=== PATIENT | female | born 2000 | race African-American/Black ===

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

== ENCOUNTER → 2020-07-22 | Outpatient (CLI) | payer SELFPAY ==
[~2020-07-22] MED LIST changes: +DIPH50CA PO; +MACR100C43 PO
== END ==
LOC: M LABSMTC 10:20
PROVIDERS: ATTEND Pediatrics
DX: Z20.828 Contact with and (suspected) exposure to other viral communicable diseases (principal)

== ENCOUNTER 2020-09-01 14:53 | Emergency (ER) | payer OTHER ==
[~2020-09-01] VITALS: Ht 162.6 cm; Wt 50.0 kg
[2020-09-01] MEDS ORDERED: NAPR-885 PO (15:02)
[2020-09-01] MEDS ORDERED: NS 1,000 ML IV ONE ×2 (16:20→18:55)
[2020-09-01] MEDS ORDERED: diphenhydrAMINE 50MG/ML VIAL (J1200) IV ONE (16:20)
[2020-09-01] MEDS ORDERED: ACETAMINOPHEN 500 MG TAB PO ONE (16:20)
[2020-09-01] MEDS ORDERED: METOCLOPRAMIDE INJ 10MG/2ML VIAL (J2765 PER 1) IV ONE (16:20)
[2020-09-01 17:01] LABS: BASO % 0.5 % (0.0-1.0); EOS # 0.1 10^3/uL (0.0-0.5); EOS % 0.8 % (0.0-3.0); HEMATOCRIT 42.1 % (36.0-47.0); HEMOGLOBIN 13.5 g/dl (12.0-15.5); LYMPH # 2.3 10^3/uL (1.5-5.0); LYMPH % 30.7 % (24.0-44.0); MEAN CORPUSCULAR HEMOGLOBIN 26.2 pg (27.0-33.0); MEAN CORPUSCULAR HGB CONC 32.1 g/dl (32.0-36.5); MEAN CORPUSCULAR VOLUME 81.7 fl (80.0-96.0); MONO # 0.3 10^3/uL (0.0-0.8); MONO % 3.8 % (2.0-8.0); NEUTROPHILS # 4.9 10^3/uL (1.5-8.5); NEUTROPHILS % 63.7 % (36.0-66.0); RED BLOOD COUNT 5.15 10^6/uL (4.00-5.40); WHITE BLOOD COUNT 7.6 10^3/uL (4.0-10.0)
[2020-09-01 17:13] LABS: PLATELET COUNT, AUTOMATED 197 10^3/uL (150-450)
[2020-09-01] MEDS ORDERED: ACETAMINOPHEN 325 MG TAB PO ONE (17:20)
[2020-09-01] MEDS ORDERED: METOCLOPRAMIDE 5 MG TAB PO ONE (17:20)
[2020-09-01] MEDS ORDERED: diphenhydrAMINE 25MG CAP PO ONE (17:20)
[2020-09-01 18:52] LABS: ALT/SGPT 19 U/L (12-78); BILIRUBIN,DIRECT 0.4 MG/DL (0.0-0.2); BILIRUBIN,TOTAL 1.9 MG/DL (0.2-1.0); BLOOD UREA NITROGEN 7 MG/DL (7-18); CALCIUM LEVEL 9.1 MG/DL (8.5-10.1); CARBON DIOXIDE LEVEL 28 MEQ/L (21-32); CHLORIDE LEVEL 107 MEQ/L (98-107); CK-MB VALUE MASS < 1.0 NG/ML (<3.6); CPK CREATINE PHOSPHOKINASE 79 U/L (26-192); GLUCOSE, FASTING 66 MG/DL (70-100); LIPASE 89 U/L (73-393); MB/CK RELATIVE INDEX 1.27 (< OR =4); POTASSIUM SERUM 3.9 MEQ/L (3.5-5.1); SODIUM LEVEL 139 MEQ/L (136-145); TOTAL PROTEIN 7.5 GM/DL (6.4-8.2); TROPONIN I < 0.02 NG/ML (< 0.10)
[2020-09-01 19:00] LABS: HCG, SERUM QUALITATIVE NEGATIVE (NEGATIVE)
[2020-09-01 19:15] LABS: ERYTHROCYTE SEDIMENTATION RATE 4 mm/hr (0-20)
--- NOTE | 2020-09-01 19:24 | REPVR ---
PROCEDURE INFORMATION: Exam: CT Head Without Contrast Exam date and time: 09/01/2020 7:06 PM Age: 20 years old Clinical indication: Pain; Headache; Additional info: Severe head pain x 14 days TECHNIQUE: Imaging protocol: Computed tomography of the head without contrast. Radiation optimization: All CT scans at this facility use at least one of these dose optimization techniques: automated exposure control; mA and/or kV adjustment per patient size (includes targeted exams where dose is matched to clinical indication); or iterative reconstruction. COMPARISON: No relevant prior studies available. FINDINGS: Brain: Normal. No hemorrhage. Unremarkable white matter. No mass effect. Cerebral ventricles: No ventriculomegaly. Bones/joints: Unremarkable. No acute fracture. Paranasal sinuses: Visualized sinuses are unremarkable. No fluid levels. Mastoid air cells: Visualized mastoid air cells are well aerated. Soft tissues: Unremarkable. IMPRESSION: No acute intracranial abnormality. Electronically signed by: Ace Hernandez On 09/01/2020 19:24:52 PM
--- NOTE | 2020-09-01 19:31 | REP ---
INDICATION: left sided chest pain COMPARISON: 06/13/2019 TECHNIQUE: PA and lateral. FINDINGS: The mediastinum and cardiac silhouette are normal. The lung carranza are clear and without acute consolidation, effusion, or pneumothorax. The skeletal structures are intact and normal. IMPRESSION: No acute cardiopulmonary process. <Electronically signed by Aakash Minor > 09/01/20 1921
[2020-09-01] MEDS ORDERED: KETOROLAC 30 MG/ML 1ML VIAL IV ONE (20:00)
[2020-09-01] MEDS ORDERED: dexameTHASONE 4 MG/ML 1ML VIAL (J1100 PER 1MG) IV ONE (20:00)
[2020-09-01 20:34] VITALS: BP 118/62
--- NOTE | 2020-09-02 14:21 | ECGEPIP ---
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
== END 2020-09-01 20:40 | disposition home or self-care (01) ==
LOC: M ED 14:53
DX: R07.89 Other chest pain (principal); G43.909 Migraine, unspecified, not intractable, without status migrainosus
CPT/HCPCS: 36415; 70450; 71046; 80048; 80076; 82550; 82553; 83690; 84484; 84703; 85025; 85652; 86140; 87798; 93005; 96361; 96374; 96375; 99284; J1100; J1885

== ENCOUNTER 2020-11-17 10:32 | Emergency (ER) | payer OTHER ==
[~2020-11-17] VITALS: Ht 162.6 cm; Wt 50.0 kg
[2020-11-17 10:32] VITALS: BP 108/64
[~2020-11-17 10:32] MED LIST changes: +NAPR-885 PO
[2020-11-17] MEDS ORDERED: IBUP-1114 PO (11:48)
[2020-11-17] MEDS ORDERED: GABA-282 PO (11:48)
[2020-11-17] MEDS ORDERED: IBUPROFEN 400MG TAB PO ONE (11:50)
== END 2020-11-17 12:01 | disposition home or self-care (01) ==
LOC: M ED 10:32
DX: M54.16 Radiculopathy, lumbar region (principal)

== ENCOUNTER → 2021-01-12 | Outpatient (REF) ==
[~2021-01-12] MED LIST changes: +BIOF4GEL4 TOP; +GABA-282 PO; +IBUP-1114 PO; +METH-1164 PO; +METH-1165 PO
== END ==
LOC: M PLAIMG 15:37
PROVIDERS: ATTEND Internal Medicine
DX: Z00.00 Encounter for general adult medical examination without abnormal findings (principal)

== ENCOUNTER 2021-02-11 15:37 | Emergency (ER) | payer OTHER ==
[~2021-02-11] VITALS: Ht 162.6 cm; Wt 99.5 kg
[~2021-02-11 15:37] MED LIST changes: -BIOF4GEL4 TOP; -METH-1164 PO; -METH-1165 PO
[2021-02-11] MEDS ORDERED: KETOROLAC TROMETHAMINE 10 MG TAB PO ONE (18:35)
[2021-02-11 18:46] VITALS: BP 107/70
== END 2021-02-11 18:49 | disposition home or self-care (01) ==
LOC: M ED 15:37
DX: R51.9 Headache, unspecified (principal); H01.113 Allergic dermatitis of right eye, unspecified eyelid

== ENCOUNTER 2021-03-13 17:56 | Emergency (ER) | payer OTHER ==
[~2021-03-13] VITALS: Ht 162.6 cm; Wt 54.5 kg
[2021-03-13] MEDS ORDERED: ISOVUE-370 76% 100ML VIAL As Ordered ONE (18:52)
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
[2021-03-13 19:31] LABS: HCG, SERUM QUALITATIVE NEGATIVE (NEGATIVE)
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
[2021-03-13] MEDS ORDERED: KETOROLAC 30 MG/ML 1ML VIAL IV ONE (19:50)
[2021-03-13] MEDS ORDERED: METH-1164 PO (20:12)
[2021-03-13] MEDS ORDERED: diazePAM 10MG/2ML SYRINGE (J3360 PER 5MG) IV ONE (20:15)
[2021-03-13 21:00] VITALS: BP 117/81
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
== END 2021-03-13 21:25 | disposition home or self-care (01) ==
LOC: M ED 17:56 → EDSEX 17:56 → EDBD 17:56 → M ED 21:25
DX: S06.0X0A Concussion without loss of consciousness, initial encounter (principal); S20.20XA Contusion of thorax, unspecified, initial encounter; V49.40XA Driver injured in collision with unspecified motor vehicles in traffic accident, initial encounter; M54.2 Cervicalgia; R91.8 Other nonspecific abnormal finding of lung field; Y92.9 Unspecified place or not applicable; Y93.9 Activity, unspecified; Y99.9 Unspecified external cause status
CPT/HCPCS: 70450; 71260; 72125; 72128; 72131; 74177; 80047; 84702; 84703; 96374; 96375; 99284; J1885; J3360; Q9967

== ENCOUNTER 2021-05-12 07:48 | Emergency (ER) | payer OTHER ==
[~2021-05-12] VITALS: Ht 162.6 cm; Wt 52.7 kg
[~2021-05-12 07:48] MED LIST changes: +METH-1164 PO
[2021-05-12] MEDS ORDERED: ACETAMINOPHEN 500 MG TAB PO ONE (08:00)
--- OUTSIDE RECORDS SUMMARY | 2021-05-12 09:01 | CCD ---
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 reliever [id number] [employer]. [address] [place] [address], [place] [address]. All rights reserved. This information is not intended as asubstitute for professional medical care. Always follow your healthcare professional's instructions. You have been given the following additional inf ormation: Anxiety Reaction Stay with responsible adult family member (or other responsible adult) today, for one days. No strenuous activity until better.(Electronically signed by UBNNY Tubbs 03/09/2021 22:10) Name Value Range Interpretation Code Description Data Abigail rce(s) Supporting Document(s) ID Date Data Source [id number] 03/09/2021 07:00:00 PM EDT [facility] 1 Clinical Report - Nurses [facility] Emergency Department [address] [place] [address] Phone #: ext- [phone] 03/09/2021 19:07 Patient: CRISTINO ALEXANDER Sex: F : 2000 Age: 20yTRIAGEArrived by private vehicle. Historian: patient. Unaccompanied.Acuity: LEVEL 4.Chief Complaint: (Anxiety).Alert. No acute distress.( Patient states for past "day or two" she has not eaten or drank anything due to "being too anxious". Statesthe anxiety is new. Denies nausea/vomiting or physical reasons for not eating, just states she hasn'twanted to.).Treatment [employer]:None.SEPSIS SCREEN: SIRS SCREEN NEGATIVE. SEPSIS SCREEN NEGATIVE. No suspected or confirmedsigns of infection present.SAHRA COMA SCORE: 15- eyes open- spontaneous (4); best verbal response- oriented (5); bestmotor response- obeys commands (6). --19:40 03/09/21 Rudy White9:34 0 03/09/21. BP: 101/66. HR: 74. RR: 14. O2 saturation: 100%. Temp: 98.9 F. Pain level now 6/10.--19:40 03/09/21 Beverly White.Weight: 54.4 kg. Height/Length: 64 inches. BMI: 20.6. --19:34 03/09/21 Beverly White.Medications"depression medication". --19:36 03/09/21 Beverly White "sleeping pill"-last night. --19:36 03/09/21 Beverly White.AllergiesNo Known Drug Allergy. --19:36 03/09/21 Beverly White.PROBLEMS:Migraine Headache.Depression.Chronic Back Pain.Head Injury. --19:37 03/09/21 Beverly White.HistoryPAST MEDICAL HX: Last normal menstrual period- February 23. Last oral intake by patient was 2 Clinical Report - Nurses [facility] Emergency Department [address] [place] [address] Phone #: ext- [phone] 03/09/2021 19:07 Patient: CRISTINO ALEXANDER Sex: F : 2000 Age: 20y (Yesterday morning). SOCIAL HX: Never smoker. No alcohol use or drug use. She was offered HIV testing but declined. Patient education was provided. She was offered hepatitis C testing but declined. Patient education was provided. She has not traveled outside the [place] Infectious disease exposure: No infectious disease exposure. The patient was not exposed to Coronavirus. Patient is not a known carrier of tuberculosis, hepatitis, HIV, MRSA or VRE. Patient is not a known carrier of CRE. SELF HARM ASSESSMENT: Self harm assessment was performed. The patient answered "no" to the question(s) "Have you recently felt down, depressed, or hopeless?", "Do you have thoughts of harming or killing yourself?", "Do you have a plan for harming or killing yourself?", "Have you recently had thoughts about harming or killing others?", "Do you have any dangerous items in your possession?", "Have you noticed less interest or pleasure in doing things?", "Are you here because you tried to hurt yourself?" and "Have you ever tried to hurt yourself before today?". ABUSE ASSESSMENT: Abuse assessment. The patient had positive responses to the question(s) "Do you feel safe in your home?" and "Are you afraid to go home?". Abuse denied. No suspicion of abuse. No report of abuse. NUTRITIONAL RISK ASSESSMENT: The nutritional risk assessment revealed no deficiencies. FUNCTIONAL ASSESSMENT: Functional assessment: no impairments noted. LEARNING NEEDS ASSESSMENT: The learning needs assessment revealed no barriers. FALL RISK ASSESSMENT: Fall risk assessment completed. No risk factors identified. SKIN INTEGRITY ASSESSMENT: Skin integrity risk assessment completed. No skin integrity risk identified. --19:40 03/09/21 Beverly White.PHYSICAL ASSESSMENTGENERAL / NEURO / PSYCH: Alert. Appears in no acute distress. Mood/affect abnormal (anxious andflat).HEENT: Pupils equal, round and reactive to light. No facial asymmetry noted. Mucous membranes arepink.RESPIRATORY: Respirations not labored. Chest nontender. Breath sounds within normal limits.CVS: Capillary refill less than 2 seconds. Pulses within normal limits.GI / : Abdomen soft and nontender and normal bowel sounds.SKIN: Skin intact. Skin is warm and dry. Normal skin turgor. --21:29 03/09/21 Di Emmanuel R.N.NURSING PROGRESS NOTESReassurance given. Two patient identifiers checked. Patient placed in chair. Patient ready forevaluation. --19:41 03/09/21 Beverly White 3 Clinical Report - Nurses [facility] Emergency Department [address] [place] [address] Phone #: ext- [phone] 03/09/2021 19:07 Patient: CRISTINO ALEXANDER [facility]#: [id number] Sex: F : 2000 Age: 20y 22:00 03/09/2021 Ativan (LORazepam) PO 0.5 mg given. Allergies verified and confirmed 5 rights. Information reviewed with patient including reason for taking this medication, signs of allergic reaction, precautions and sedative warning. Verbalizes understanding. (Take home med). --22:00 03/09/21 Beverly White.DISPOSITION / DISCHARGE Departure time: 22:09 03/09/2021. Condition at departure: stable. No learning barriers present. Discharge instructions provided and reviewed with the patient. Reviewed warnings. Reviewed medication(s). Reviewed referrals. Patient verbalized understanding. Written instructions provided in Ukrainian. The patient was discharged by the physician assistant business manager. She was discharged home and accompanied by coding manager. She left ambulatory and via private vehicle. Cellar [employer] driving. --22:09 03/09/21 Beverly White 22:08 03/09/21. BP: 101/67. HR: 65. RR: 15. O2 saturation: 97%. Temp: 97.8 F. Pain level now 0/10. --22:09 03/09/21 Beverly White.Locked/Released at 03/09/2021 22:09 by Beverly White Name Value Range Interpretation Code Description Data Abigail rce(s) Supporting Document(s) ID Date Data Source [id number] 03/09/2021 07:00:00 PM EDT [facility] 1 Clinical Report - Physicians/Mid Levels [facility] Emergency Department [address] [place] [address] Phone #: ext- [phone] 03/09/2021 19:07 Patient: CRISTINO ALEXANDER Sex: F : 2000 Age: 20y Time Seen: 21:31 03/09/2021. Arrived- By private vehicle. Not in custody. Historian- patient. Disposition decision: 21:59 03/09/2021.HISTORY OF PRESENT ILLNESS Chief Complaint: ANXIOUS. This started several days ago. 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 States emphatically and repeatedly that she has no suicidal thoughts/ideation and wants something for anxiety and sleep. No cough, fever, NVD, or other constitutional symptoms.). The patient has experienced situational problems but not exhibited a behavior change and was not found wandering and is compliant wit h medication. No recent drug use or alcohol consumption. Has not been eating or sleeping. She has had anxiety. Has been mildly depressed with loss of appetite and insomnia. No anger, unusual behavior, paranoia, delusions or suicidal thoughts. No self-injury inflicted or hallucinations. The symptoms are described as moderate. No injury is present. Similar symptoms previously. Recent medical care: The patient was seen recently by a health care provider.REVIEW OF SYSTEMSLast normal menstrual period- 23 Feb 2021. No headache, dizziness, weakness, chest pain orpalpitations. No abdominal pain, vomiting, diarrhea, black stools or numbness. No fever, sore throat,cough, difficulty breathing or urinary frequency. No skin rash, enlarged lymph nodes, joint pain, weightloss or laceration.PAST HISTORYSee nurses notes. Problems: Migraine Headache. Depression. Chronic Back Pain. Head Injury. Medications: "sleeping pill"-last night. "depression medication". 2 Clinical Report - Physicians/Mid Levels [facility] Emergency Department [address] [place] [address] Phone #: ext- [phone] 03/09/2021 19:07 [id number] Sex: F : 2000 Age: 20y Allergies: No Known Drug Allergy.SOCIAL HISTORYNever smoker. No alcohol use or drug use.ADDITIONAL NOTESThe nursing notes have been reviewed with agreement regarding the chief complaint, HPI, ROS, PMH andpatient medications and allergies.PHYSICAL EXAMVital Signs: 03/09/2021 19:34 BP: 101/66. MAP: 77. HR: 74. RR: 14. O2 saturation: 100%. Temp: 98.9 F.Have been reviewed as normal and appear to be correct. Blood pressure normal. Mean arterialpressure- normal. Heart rate normal. Respiratory rate normal. Temperature normal. Oxygensaturation normal.Appearance: Alert. No acute distress. Appearance is normal. Anxious. She is cooperative. She isalert, oriented, well hydrated, well nourished and well developed. She is well dressed, appearscomfortable, shows no apparent trauma and has normal color. Appearance is consistent with stated age.Eyes: Pupils equal, round and reactive to light.Neck: Normal inspection. Neck supple.CVS: Normal heart rate and rhythm. Heart sounds normal.Respiratory: Painless inspiration. Breath sounds normal. Chest nontender.Abdomen: Soft and nontender.Back: No tenderness.Skin: Skin warm and dry. Normal skin color. Normal skin turgor.Extremities: Extremities exhibit normal ROM. No lower extremity edema.Psych / Neuro: Oriented X 3. Flat affect. (flat affect at times during hx). Speech normal. Cognitionnormal. Thought process and content normal. Denies suicidal thoughts. Patient does not expresshomicidal thoughts. Insight and judgement normal. Cranial nerves normal (as tested). No cerebellarfindings. No motor deficit. No sensory deficit. Reflexes normal.PROGRESS AND PROCEDURESCourse of Care: 21:49 Mar 09 2021. s/s c/wwith anxiety reaction secondary monica situa tional issues at [facility] home, pt vehemently denies suicial ideation repeatedly during hx taking. 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 Disposition: Discharged home in good and improved condition. Discharge decision based on the following: patient's condition is improved; patient is ambulatory; patient is active; patient's exam is stable; patient's exam is improved; stable condition on repeat evaluation; social support is adequate; transportation is available; follow-up is available; clinical impression is consistent with outpatient treatment. 3 Clinical Report - Physicians/Mid Levels [facility] Emergency Department [address] [place] [address] Phone #: ext- [phone] 03/09/2021 19:07 Patient: CRISTINO ALEXANDER Sex: F : 2000 Age: 20yCLINICAL IMPRESSION Anxiety reaction (with insomnia and anorexia).INSTRUCTIONS Stay with responsible adult family member (or other responsible adult) today, for one days. No strenuous activity until better. Do not smoke. No alcohol. Warnings: Further evaluation is necessary. It is very important to follow up with a healthcare provider. GENERAL WARNINGS: Return or contact your physician immediately if your condition worsens or changes unexpectedly, if not improving as expected, or if other problems arise. Specifically return if pain, vomiting, bleeding, breathing difficulty or fever. suicidal thoughts. Your Current Medications: Your current home medications have been reviewed. STOP TAKING THE FOLLOWING MEDICATIONS: "sleeping pill"-last night*. CONTINUE TAKING THE FOLLOWING MEDICATIONS: "depression medication"*. Understanding of the discharge instructions verbalized by patient. Expected course of illness, discharge instructions, activity level, follow-up appointment and risks and benefits of treatment reviewed with patient and understanding verbalized. Agrees to plan of care. [facility] with: [facility], , , [address] [facility], , [place], [address] Follow up in one day even if well. Call for the next available appointment. Reason for referral: evaluation and Pt needs to f/u with [facility] due recent increasing anxiety with insomnia and anorexia, hx of tx for depression. Summary of care provided to patient via paper.(Electronically signed by BUNNY Tubbs 03/09/2021 22:10) Name Value Range Interpretation Code Description Data Abigail rce(s) Supporting Document(s) ID Date Data Source [id number] 10/08/2020 09:18:00 AM EDT [facility] Name Value Range Interpretation Code Description Data Abigail rce(s) Supporting Document(s) SARS coronavirus 2 RNA Detected [facility] This lab was ordered by [facility] and reported by [facility]. ID Date Data Source [id number] 09/01/2020 05:02:00 PM EST [facility] Name Value Range Interpretation Code Description Data Abigail rce(s) Supporting Document(s) SARS-CoV-2 (COVID 19) NEGATIVE - SARS-CoV-2 (COVID19) [facility] This lab was ordered by [facility] a nd reported by [facility]. ID Date Data Source [id number] 07/22/2020 12:00:00 AM EST [facility] Name Value Range Interpretation Code Description Data Abigail rce(s) Supporting Document(s) SARS-CoV-2 (COVID-19) RNA [Presence] in Respiratory specimen by GABRIELLA with probe detection Not Detected [facility] This lab was ordered by [facility] and reported by [employer] [facility] ID Date Data Source [id number] 06/16/2020 12:00:00 AM EST [facility] Name Value Range Interpretation Code Description Data Abigail rce(s) Supporting Document(s) SARS-CoV-2 (COVID-19) RNA [Presence] in Respiratory specimen by GABRIELLA with probe detection [facility] This lab was ordered by [facility] and reported by [employer] [facility] Procedure Social History No Information Vital Signs ID Date Data Source UNK Name Value Range Interpretation Code Description Data Source(s) Body height [Percentile] 45 % 45 % [facility] Body weight 116.00 [lb_av] 116.00 [lb_av] [facility] ([facility], ) Body mass index (BMI) [Ratio] 19.9 kg/m2 19.9 k g/m2 [facility] ([facility], ) [place] body weight 120 [lb_av] 120 [lb_av] [facility] ([facility], ) Body height 64 [in_i] 64 [in_i] [facility], [facility] 5'4" Respiratory rate 12 /min 12 /min [facility] ( [facility], ) Body temperature 97.4 [degF] 97.4 [degF] [facility] Body height 64 [in_i] 64 [in_i] [facility] ([facility] ) 5'4" Body weight 120.00 [lb_av] 120.00 [lb_av] [facility] ([facility] ) Body mass index (BMI) [Ratio] 20.6 kg/m2 20.6 k g/m2 [facility]
[2021-05-12 10:00] VITALS: BP 103/72
--- NOTE | 2021-05-12 20:32 | ECGEPIP ---
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
== END 2021-05-12 10:09 | disposition home or self-care (01) ==
LOC: M ED 07:48 → EDBD 07:48 → M ED 10:09
DX: R55 Syncope and collapse (principal)

== ENCOUNTER 2021-07-04 20:29 | Emergency (ER) | payer OTHER ==
[~2021-07-04] VITALS: Ht 162.6 cm; Wt 53.6 kg
[2021-07-04 23:49] VITALS: BP 101/63
[2021-07-05] MEDS ORDERED: BIOF4GEL4 TOP (00:15)
[2021-07-05] MEDS ORDERED: METH-1165 PO (00:15)
== END 2021-07-05 00:39 | disposition home or self-care (01) ==
LOC: M ED 20:29
DX: M54.2 Cervicalgia (principal); G89.29 Other chronic pain; R20.2 Paresthesia of skin

== ENCOUNTER → 2021-08-03 | Outpatient (CLI) | payer OTHER ==
[~2021-08-03] MED LIST changes: +BIOF4GEL4 TOP; +METH-1165 PO
== END ==
LOC: M PLAIMG 12:49
PROVIDERS: ATTEND Orthopaedic Surgery
DX: M54.2 Cervicalgia (principal)